=== PATIENT | male | born 1980 | race African-American/Black ===

== ENCOUNTER 2021-04-08 07:42 | Emergency (ER) | payer OTHER, SELFPAY ==
[~2021-04-08] VITALS: Ht 182.9 cm; Wt 100.0 kg
[~2021-04-08 07:42] MED LIST: CIPR-278 PO; CIPR250S4 PO
[2021-04-08 08:45] VITALS: BP 133/76
[2021-04-08] MEDS ORDERED: PERTUSS(ACELL),DIPH,TET VAC/PF 0.5 ML SYRINGE IM. ONE (10:00)
[2021-04-08] MEDS ORDERED: LIDOCAINE 1%/EPI 1:100,000 30 ML VIAL SQ ONE (11:00)
[2021-04-08] MEDS ORDERED: LIDOCAINE 1%/EPI 1:100,000 30 ML VIAL ID ONE (11:15)
== END 2021-04-08 12:47 | disposition home or self-care (01) ==
LOC: EMS 08:08
DX: S51.012A Laceration without foreign body of left elbow, initial encounter (principal); W18.39XA Other fall on same level, initial encounter; Y93.89 Activity, other specified; Y92.89 Other specified places as the place of occurrence of the external cause; Y99.8 Other external cause status
CPT/HCPCS: 12002; 73080; 90471; 90715; 99283; J3490